=== PATIENT | female | born 1985 | race African-American/Black ===

== ENCOUNTER → 2018-09-07 | Outpatient (CLI) | payer MEDICAID ==
[~2018-09-07] MED LIST: ALBUTEROL SULF 2.5 MG/0.5ML(0.5%) NEB SOLN ONE
== END | disposition home or self-care (01) ==
LOC: RT 08:38
PROVIDERS: ATTEND Internal Medicine Pulmonary Disease
DX: Z01.818 Encounter for other preprocedural examination (principal); J45.909 Unspecified asthma, uncomplicated
CPT/HCPCS: 94060; J7611; 94640